=== PATIENT | male | born 1930 | race African-American/Black ===

== ENCOUNTER 2019-12-18 08:11 | Inpatient (IN) | payer OTHER ==
[~2019-12-18] VITALS: Ht 177.8 cm; Wt 85.7 kg
[2019-12-18 09:04] LABS: BASOPHILS % 0.6 % (0.0-2.0); EOSINOPHILS % 0.4 % (0.0-5.0); HEMATOCRIT. 32.5 % (42.0-52.0); HEMOGLOBIN. 10.7 g/dL (14.0-18.0); MEAN CORPUSCULAR HEMOGLOBIN 30.2 pg (28.0-32.0); MEAN CORPUSCULAR VOLUME 92.1 fL (80.0-94.0); MEAN PLATELET VOLUME 6.7 fl (7.4-10.4); MONOCYTES % 7.1 % (2.0-8.0); NEUTROPHILS % 76.9 % (40.0-76.0); PLATELET 143 x1000/uL (130-400); RED BLOOD CELL COUNT 3.53 mill/uL (4.7-6.1)
[2019-12-18 09:11] LABS: CHLORIDE 107 mEq/L (98-107)
[2019-12-18] MEDS ORDERED: MORPHINE SULFATE 4 MG/ML CPJ (NOT FOR IM USE) IV ONE (09:45)
[2019-12-18] MEDS ORDERED: LORAZEPAM 0.5MG TABLET PO PRN (12:15)
[2019-12-18] MEDS ORDERED: MAGNESIUM/ALUMINUM HYDROXIDE/SIMETHICONE 30ML UDC PO PRN (12:15)
[2019-12-18] MEDS ORDERED: ACETAMINOPHEN 325MG TABLET PO PRN ×2 (12:15)
[2019-12-18] MEDS ORDERED: ZOLPIDEM TARTRATE 5MG TABLET PO PRN (12:15)
[2019-12-18] MEDS ORDERED: GUAIFENESIN 200MG/10ML SUGAR FREE UDC PO PRN (12:15)
[2019-12-18] MEDS ORDERED: DOCUSATE SODIUM 100MG CAPSULE PO PRN (12:15)
[2019-12-18] MEDS ORDERED: ONDANSETRON HCL 4MG/2ML INJ IV PRN (12:15)
[2019-12-18] MEDS ORDERED: NITROGLYCERIN 0.4MG TABLET SL SL PRN (12:15)
[2019-12-18] MEDS ORDERED: CLONIDINE 0.1MG TABLET PO PRN (12:15)
[2019-12-18] MEDS ORDERED: TRAMADOL 50MG TABLET PO PRN (12:15)
[2019-12-18 14:15] LABS: FOLIC ACID (FOLATE) SERUM 17.4 ng/mL (>5.38)
[2019-12-18] MEDS ORDERED: CEFTRIAXONE 1 G PREMIX 50 ML IV NR (15:00)
[2019-12-18 20:49] LABS: CREATINE KINASE MB FRACTION 2.6 ng/mL (0.5-3.6)
[2019-12-18 21:30] VITALS: BP 135/75
[2019-12-18] MEDS: FAMOTIDINE 20MG TABLET PO SCH (22:47)
[2019-12-18] MEDS: METOPROLOL TARTRATE 25MG TABLET PO SCH (22:47)
[2019-12-18] MEDS ORDERED: ENOXAPARIN 40MG/0.4ML SYR SUBCUT SCH (23:00)
[2019-12-18] MEDS: IPRATROPIUM/ALBUTEROL 0.5-3(2.5)MG/3ML NEB NEB PRN (23:48)
[2019-12-19 00:45] LABS: CREATINE KINASE MB FRACTION 3.6 ng/mL (0.5-3.6)
[2019-12-19] MEDS ORDERED: METO25TA6 PO (01:18)
[2019-12-19] MEDS ORDERED: DIGO125T80 MT (01:18)
[2019-12-19] MEDS ORDERED: LISI2.5T47 PO (01:20)
[2019-12-19] MEDS ORDERED: FURO20TA4 PO (01:20)
[2019-12-19] MEDS ORDERED: WARF2.5T83 PO (01:21)
[2019-12-19] MEDS ORDERED: ASPI-1497 PO (01:22)
[2019-12-19] MEDS ORDERED: POTA10TA2 PO (01:23)
[2019-12-19] MEDS ORDERED: TIOT18CA3 IH (01:25)
[2019-12-19] MEDS ORDERED: TC1U15 TOP (01:26)
[2019-12-19] MEDS ORDERED: TAMS-11 PO (01:26)
[2019-12-19] MEDS ORDERED: ALLO300T2 PO (01:26)
[2019-12-19] MEDS ORDERED: ALEN70TA68 PO (01:27)
[2019-12-19 04:00] VITALS: BP 159/66
[2019-12-19 08:00] VITALS: BP 153/76
[2019-12-19] MEDS: ASPIRIN 325MG EC TABLET PO SCH (09:12)
[2019-12-19] MEDS: METOPROLOL TARTRATE 25MG TABLET PO SCH ×2 (09:12→22:16)
[2019-12-19 12:47] VITALS: BP 147/84
[2019-12-19] MEDS: CEFTRIAXONE 1 G PREMIX 50 ML IV SCH (13:42)
[2019-12-19 14:31] LABS: CLARITY URINE CLOUDY (CLEAR); COLOR URINE DARK YELLOW (YELLOW); KETONES URINE NEGATIVE (NEGATIVE); LEUKOCYTE ESTERASE URINE 2+ (NEGATIVE); NITRITE URINE NEGATIVE (NEGATIVE); OCCULT BLOOD URINE 2+ (NEGATIVE); PROTEIN URINE 2+ (NEGATIVE); SPECIFIC GRAVITY URINE 1.018 (1.005-1.030)
[2019-12-19] MEDS ORDERED: CEFTRIAXONE 1 G PREMIX 50 ML IV SCH (15:00)
[2019-12-19 15:28] LABS: BASOPHILS % 0.2 % (0.0-2.0); CHLORIDE 104 mEq/L (98-107); HEMOGLOBIN. 10.7 g/dL (14.0-18.0); LYMPHOCYTES % 7.6 % (20.0-50.0); MEAN CORPUSCULAR HEMOGLOBIN 30.9 pg (28.0-32.0); MEAN CORPUSCULAR VOLUME 92.1 fL (80.0-94.0); MEAN PLATELET VOLUME 7.3 fl (7.4-10.4); MONOCYTES % 7.2 % (2.0-8.0); PLATELET 149 x1000/uL (130-400); RED BLOOD CELL COUNT 3.47 mill/uL (4.7-6.1); RED CELL DISTRIBUTION WIDTH 16.2 % (11.6-14.6)
[2019-12-19 17:55] VITALS: BP 149/74
[2019-12-19] MEDS: ENOXAPARIN 80MG/0.8ML SYR SUBCUT SCH (18:11)
[2019-12-19 18:30] LABS: BASOPHILS % 0.4 % (0.0-2.0); HEMATOCRIT. 33.9 % (42.0-52.0); HEMOGLOBIN. 11.1 g/dL (14.0-18.0); LYMPHOCYTES % 11.9 % (20.0-50.0); MEAN CORPUSCULAR HEMOGLOBIN 30.2 pg (28.0-32.0); MEAN CORPUSCULAR VOLUME 92.5 fL (80.0-94.0); MEAN PLATELET VOLUME 7.3 fl (7.4-10.4); MONOCYTES % 9.2 % (2.0-8.0); NEUTROPHILS % 78.5 % (40.0-76.0); PLATELET 149 x1000/uL (130-400); RED BLOOD CELL COUNT 3.67 mill/uL (4.7-6.1); RED CELL DISTRIBUTION WIDTH 16.1 % (11.6-14.6)
[2019-12-19 20:00] VITALS: BP 120/56
[2019-12-19] MEDS: FAMOTIDINE 20MG TABLET PO SCH (22:16)
[2019-12-20] VITALS: BP 128/60
[2019-12-20] MEDS: IPRATROPIUM/ALBUTEROL 0.5-3(2.5)MG/3ML NEB NEB PRN (01:43)
[2019-12-20 04:00] VITALS: BP 144/84
[2019-12-20 05:11] LABS: INR 2.4; PROTHROMBIN TIME 25.2 sec (9.6-11.0)
[2019-12-20 05:14] LABS: CHLORIDE 107 mEq/L (98-107)
[2019-12-20 05:19] LABS: PHOSPHORUS 2.5 mg/dL (2.5-4.9)
[2019-12-20] MEDS: ENOXAPARIN 80MG/0.8ML SYR SUBCUT SCH (05:21)
[2019-12-20 05:23] LABS: CREATINE KINASE 280 IU/L (39-308)
[2019-12-20 05:25] LABS: CREATINE KINASE MB FRACTION 5.3 ng/mL (0.5-3.6)
[2019-12-20 08:00] VITALS: BP 125/52
[2019-12-20] MEDS: METOPROLOL TARTRATE 25MG TABLET PO SCH ×2 (09:00→20:48)
[2019-12-20] MEDS: ASPIRIN 325MG EC TABLET PO SCH (09:00)
[2019-12-20 12:00] VITALS: BP 105/53
[2019-12-20 15:37] LABS: T4 FREE 1.29 ng/dL (0.76-1.46)
[2019-12-20 15:39] LABS: CREATINE KINASE MB FRACTION 5.6 ng/mL (0.5-3.6)
[2019-12-20] MEDS: CEFTRIAXONE 1 G PREMIX 50 ML IV SCH (15:44)
[2019-12-20 16:00] VITALS: BP 120/63
[2019-12-20] MEDS ORDERED: WARFARIN SODIUM 5MG TABLET PO SCH ×2 (18:00→18:30)
[2019-12-20 20:00] VITALS: BP 146/79
[2019-12-20] MEDS: FAMOTIDINE 20MG TABLET PO SCH (20:45)
[2019-12-21] VITALS: BP 128/65
[2019-12-21 00:29] LABS: CREATINE KINASE MB FRACTION 5.5 ng/mL (0.5-3.6)
[2019-12-21 04:00] VITALS: BP 155/83
[2019-12-21 06:37] LABS: CREATINE KINASE MB FRACTION 5.3 ng/mL (0.5-3.6)
[2019-12-21 06:54] LABS: INR 1.9; PROTHROMBIN TIME 20.4 sec (9.6-11.0)
[2019-12-21 08:00] VITALS: BP 120/52
[2019-12-21] MEDS: ASPIRIN 325MG EC TABLET PO SCH (09:06)
[2019-12-21] MEDS: METOPROLOL TARTRATE 25MG TABLET PO SCH (09:06)
[2019-12-21 09:13] LABS: EOSINOPHILS % 1.5 % (0.0-5.0); HEMATOCRIT. 32.2 % (42.0-52.0); HEMOGLOBIN. 10.7 g/dL (14.0-18.0); MEAN CORPUSCULAR HEMOGLOBIN 30.3 pg (28.0-32.0); MEAN CORPUSCULAR VOLUME 91.4 fL (80.0-94.0); MEAN PLATELET VOLUME 7.9 fl (7.4-10.4); MONOCYTES % 10.2 % (2.0-8.0); NEUTROPHILS % 73.3 % (40.0-76.0); PLATELET 149 x1000/uL (130-400); RED BLOOD CELL COUNT 3.53 mill/uL (4.7-6.1); RED CELL DISTRIBUTION WIDTH 16.2 % (11.6-14.6)
[2019-12-21 09:20] LABS: CHLORIDE 107 mEq/L (98-107)
[2019-12-21 09:29] LABS: CREATINE KINASE 369 IU/L (39-308)
[2019-12-21 09:30] LABS: CREATINE KINASE MB FRACTION 5.2 ng/mL (0.5-3.6)
[2019-12-21 12:00] VITALS: BP 117/55
[2019-12-21] MEDS: CEFTRIAXONE 1 G PREMIX 50 ML IV SCH (13:52)
[2019-12-21] MEDS: IPRATROPIUM/ALBUTEROL 0.5-3(2.5)MG/3ML NEB NEB PRN (16:11)
[2019-12-21 16:34] VITALS: BP 157/71
[2019-12-21] MEDS ORDERED: WARFARIN SODIUM 3MG TABLET PO SCH (18:00)
== END 2019-12-21 18:00 | disposition short-term general hospital (02) | DRG 280 ==
LOC: ER 08:11 → 7WST 11:28 → ENRESERV 20:18
PROVIDERS: ADMIT Internal Medicine; ATTEND Internal Medicine
DX: I21.4 Non-ST elevation (NSTEMI) myocardial infarction (principal); G92 Toxic encephalopathy; E44.1 Mild protein-calorie malnutrition; N39.0 Urinary tract infection, site not specified; D63.8 Anemia in other chronic diseases classified elsewhere; I11.9 Hypertensive heart disease without heart failure; F03.90 Unspecified dementia, unspecified severity, without behavioral disturbance, psychotic disturbance, mood disturbance, and anxiety; I27.20 Pulmonary hypertension, unspecified; R79.89 Other specified abnormal findings of blood chemistry; I08.0 Rheumatic disorders of both mitral and aortic valves; I48.91 Unspecified atrial fibrillation; Z95.0 Presence of cardiac pacemaker; I25.2 Old myocardial infarction; Z87.891 Personal history of nicotine dependence; Z68.27 Body mass index [BMI] 27.0-27.9, adult
CPT/HCPCS: 36415; 71045; 78582; 80048; 80053; 80061; 81003; 82550; 82553; 82607; 82746; 83036; 83540; 83550; 83735; 83880; 84100; 84439; 84443; 84484; 85025; 85379; 93005; 93306; 93970; 94640; 96365; 99285; A9558; J0696; J1650